=== PATIENT | male | born 1990 | race Two or more races ===

== ENCOUNTER 2018-09-11 06:00 | Emergency (ER) | payer SELFPAY ==
--- NOTE | 2018-09-11 06:51 | ER Document Report ---
ED General - General Chief Complaint: Irregular Pulse Stated Complaint: HEART RACING Time Seen by Provider: 09/11/18 06:12 Notes: 28-year-old male presents to the emergency department with palpitations after doing cocaine. The patient stated last night was his first cocaine experience. States after he snorted the cocaine he began having palpitations and felt a little short of breath. He is starting to feel better here. He denies nausea vomiting he states all his extremities felt numb afterwards. He really did not have chest pains as a sensation of his heart was beating rapidly and he felt a little dyspneic. Denies calf pain leg swelling denies fever chills cough sore throat. TRAVEL OUTSIDE OF THE [place] IN LAST 30 DAYS: No - Related Data Allergies/Adverse Reactions: No Known Allergies Allergy (Verified 07/09/15 07:09) Past Medical History - Social History Smoking Status: Current Every Day Smoker Chew tobacco use (# tins/day): No Frequency of alcohol use: Occasional Drug Abuse: Cocaine, Marijuana Family History: Reviewed & Not Pertinent Patient has suicidal ideation: No Patient has homicidal ideation: No - Past Medical History Cardiac Medical History: Reports: Hx Hypertension - unmedicated Renal/ Medical History: Denies: Hx Peritoneal Dialysis - Immunizations Hx Diphtheria, Pertussis, Tetanus Vaccination: No - 03/06/12 Review of Systems - Review of Systems Constitutional: denies: Chills, Fever EENT: denies: Throat pain, Difficulty swallowing Cardiovascular: denies: Palpitations, Heart racing Respiratory: denies: Cough, Short of breath Gastrointestinal: denies: Abdominal pain, Nausea, Vomiting Genitourinary: denies: Dysuria -: Yes All other systems reviewed and negative Physical Exam - Vital signs Vitals: Temp Pulse Resp BP Pulse Ox 97.6 F 106 H 17 159/102 H 100 09/11/18 06:06 09/11/18 06:06 09/11/18 06:06 09/11/18 06:06 09/11/18 06:06 - Notes Notes: GENERAL_APPEARANCE: well_nourished, alert, cooperative, no_acute_distress, no_obvious_discomfort. VITALS: reviewed, see vital signs table. HEAD: no_swelling\tenderness on the head. EYES: PERRL, EOMI, conjunctiva_clear. NOSE: no_nasal_discharge. MOUTH: (-)decreased moisture. THROAT: no_tonsilar_inflammation, no_airway_obstruction. no_lymphadenopathy NECK: supple, no_neck_tenderness, (-)thyromegaly. BACK: no_back_tenderness. CHEST_WALL: no_chest_tenderness. LUNGS: no_wheezing, no_rales, no_rhonchi, (-)accessory muscle use, good air exchange bilateral. HEART: Rapid_rate, normal_rhythm, normal_S1, normal_S2, (-)S3, (-)S4, no_murmur, no_rub. ABDOMEN: normal_BS, soft, no_abd_tenderness, (-)guarding, (-)rebound, no_organomegaly, no_abd_masses. EXTREMITIES: good pulses in all_extremities, no_swelling\tenderness in the extremities, no_edema. SKIN: warm, dry, good_color, no_rash. MENTAL_STATUS: speech_clear, oriented_X_3, anxious_affect, responds_appropriately to questions. Course - Re-evaluation Re-evalutation: 09/11/18 06:51 28-year-old male who sort some cocaine last night and had palpitations. We will watch him here in the ER for a while his heart rates coming down he is feeling better. Recheck some generalized lab work shows no signs of any ischemia on his EKG. I explained to the patient that this is bad for his heart and he should not do this. Otherwise he is low risk for ACS. He will be monitored for a while and discharged home per 09/11/18 08:30 The patient had a vasovagal episode while they were starting his IV and drawing blood which got everyone excited. We have observed him now for several hours and he is done well. The patient will be discharged home I spoke with him at length again about not exposing himself to the dangers of cocaine. - Vital Signs Vital signs: Temp Pulse Resp BP Pulse Ox 97.6 F 106 H 16 144/95 H 97 09/11/18 06:06 09/11/18 06:06 09/11/18 07:01 09/11/18 07:00 09/11/18 07:01 - Laboratory Result Diagrams: 09/11/18 06:50 09/11/18 06:50 Laboratory results interpreted by me: 09/11/18 06:50 Creatinine 1.26 H Discharge - Discharge Clinical Impression: Cocaine abuse, Heart palpitations Condition: Good Disposition: HOME, SELF-CARE Instructions: Palpitations (Irregular or Rapid Heartrate) ([facility]), Cocaine Abuse ([facility])
[2018-09-11 07:15] LABS: ABSOLUTE BASOPHILS # (AUTO) 0.1 10^3/uL (0.0-0.2); ABSOLUTE EOSINOPHILS # (AUTO) 0.2 10^3/uL (0.0-0.6); ABSOLUTE LYMPHOCYTES (AUTO) 2.1 10^3/uL (0.5-4.7); ABSOLUTE MONOCYTES (AUTO) 0.5 10^3/uL (0.1-1.4); ABSOLUTE NEUT (AUTO) 5.5 10^3/uL (1.7-8.2); BASOPHILS % (AUTO) 0.9 % (0-2); EOSINOPHILS % (AUTO) 2.8 % (0-6); HEMATOCRIT 45.9 % (37.9-51.0); HEMOGLOBIN 15.7 g/dL (13.5-17.0); LYMPHOCYTES % (AUTO) 25.1 % (13-45); MEAN CORPUSCULAR HEMOGLOBIN 31.4 pg (27.0-33.4); MEAN CORPUSCULAR HGB CONC 34.2 g/dL (32.0-36.0); MEAN CORPUSCULAR VOLUME 92 fl (80-97); MONOCYTES % (AUTO) 6.4 % (3-13); PLATELET COUNT 296 10^3/uL (150-450); RED BLOOD COUNT 5.01 10^6/uL (4.35-5.55); RED CELL DISTRIBUTION WIDTH 13.3 % (11.5-14.0); SEGMENTED NEUTROPHILS % (AUTO) 64.8 % (42-78); TOTAL CELLS COUNTED % (AUTO) 100 %; WHITE BLOOD COUNT 8.5 10^3/uL (4.0-10.5)
[2018-09-11 07:29] LABS: ANION GAP 12 (5-19); BLOOD UREA NITROGEN 12 mg/dL (7-20); CALCIUM 9.9 mg/dL (8.4-10.2); CARBON DIOXIDE 29 mmol/L (22-30); CHLORIDE 102 mmol/L (98-107); GLUCOSE 98 mg/dL (75-110); SODIUM 143.1 mmol/L (137-145)
[2018-09-11 08:45] VITALS: BP 156/89
--- NOTE | 2018-09-11 19:16 | EKG REPORT ---
SEVERITY:- BORDERLINE ECG - SINUS TACHYCARDIA BORDERLINE T ABNORMALITIES, INFERIOR LEADS BORDERLINE PROLONGED QT INTERVAL : Confirmed by: Elda Nicholas MD 11-Sep-2018 19:15:48
--- NOTE | 2018-09-12 12:39 | EKG REPORT ---
SEVERITY:- NORMAL ECG - SINUS RHYTHM : Confirmed by: Elda Nicholas MD 12-Sep-2018 12:38:39
== END 2018-09-11 08:39 | disposition home or self-care (01) ==
LOC: ER 06:00
DX: F14.10 Cocaine abuse, uncomplicated (principal); R00.2 Palpitations; R06.02 Shortness of breath; F17.200 Nicotine dependence, unspecified, uncomplicated; I10 Essential (primary) hypertension
CPT/HCPCS: 36415; 80048; 85025; 93005; 93010; 99285

== ENCOUNTER → 2020-03-01 | Outpatient (CLI) | payer BC ==
--- NOTE | 2020-03-01 17:01 | RADIOLOGY REPORT (SQ) ---
EXAM DESCRIPTION: MRI RT LOWER JOINT WITHOUT IMAGES COMPLETED DATE/TIME: 03/01/2020 4:45 pm REASON FOR STUDY: S79.911S UNSPECIFIED INJURY OF RIGHT HIP, SEQUELA S79.911S UNSPECIFIED INJURY OF RIGHT HIP, SEQUELA COMPARISON: None. TECHNIQUE: Righthip images acquired and stored on PACS. Multiplanar images to include fat sensitive sequences as T1, fluid sensitive sequences as T2/STIR and gradient echo sequences. Large FOV fat and fluid sensitive sequences include pelvis and opposite hip. LIMITATIONS: None. FINDINGS: BONE CORTEX AND MARROW: There is edema associated with a nondisplaced stress fracture of t he medial margin of the right femoral neck. TARGETED HIP: FEMORAL HEAD: No occult fracture. No osteophytes or subchondral cysts. Normal sphericity of femoral h ead/neck junction. No acetabular dysplasia. No evidence femoroacetabular impingement. No significant effusion. ACETABULUM: No acetabular dysplasia. No subchondral cysts. LABRUM: No loss of cartilage or delamination. Labrum is intact. No paralabral cysts. TROCHANTER: No trochanteric bursal effusion. No edema/fluid at the insertions of the gluteus medius and gluteus minimus. OPPOSITE HIP: Limited evaluation. No worrisome bone lesions. No significant effusion. PELVIS, LOWER LUMBAR SPINE, SACROILIAC JOINTS: PELVIS : No insufficiency/stress fractures. No significant degenerative changes. Sacroiliac joints normal. L SPINE: No significant osteophytes or degenerative changes of the visualized lumbar spine. MUSCLES AND SOFT TISSUES: Adductors and piriformis normal. Abductors and greater trochanteric bursa n ormal without edema or fluid. Iliopsoas bursa without fluid. Hamstring attachments without edema or t ear. PELVIC SOFT TISSUES: No masses or adenopathy. SCIATIC NERVE: Identified, without masses or abnormal signal. OTHER: No other significant finding. IMPRESSION: Nondisplaced stress fracture right femoral neck. TECHNICAL DOCUMENTATION: JOB ID: [id number] 2010 [employer]- All Rights Reserved Reading location - IP/workstation name: [email or web address]
== END ==
LOC: RAD 15:53
PROVIDERS: ATTEND Physician Assistant
DX: S79.911S Unspecified injury of right hip, sequela (principal); X58.XXXS Exposure to other specified factors, sequela